=== PATIENT | male | born 1955 | race Caucasian/White ===

== ENCOUNTER 2019-03-24 20:46 | Emergency (ER) | payer OTHER, MEDICAID ==
[~2019-03-24] VITALS: Ht 177.8 cm; Wt 77.1 kg
[2019-03-24 20:53] VITALS: BP_SYST 160
--- NOTE | 2019-03-24 21:00 | NUR ---
Patient to ER bed 5 to gown for evaluation. Side rails up. Report given to ELLA WOODRUFF.
--- NOTE | 2019-03-24 21:10 | NUR ---
Dr. Foster bedside for Pt eval
--- NOTE | 2019-03-24 21:15 | NUR ---
Pt BIBA to ED needing medical clearance with Hx of schizophrenia, who presents to the emergency department secondary to medical clearance prior to transfer to [facility]. Patient is noted to have auditory hallucinations telling him to hurt himself. Upon evaluation, patient states he feels fine and does not have any pain. No chest pain, shortness of breath, headaches, nausea, vomiting, or any other complaints. VSS no s/s of acute distress Resting on gurney rails up
[2019-03-24 22:10] LABS: BILIRUBIN,URINE NEGATIVE (NEGATIVE); BLOOD, URINE NEGATIVE (NEGATIVE); CLARITY/URINE CLEAR (CLEAR); COLOR,URINE YELLOW (YELLOW); GLUCOSE,URINE NEGATIVE (NEGATIVE); KETONES,URINE NEGATIVE (NEGATIVE); LEUKOCYTE ESTERASE ,URINE NEGATIVE (NEGATIVE); NITRITE, URINE NEGATIVE (NEGATIVE); PROTEIN URINE NEGATIVE (NEGATIVE); UROBILINOGEN,URINE 0.2 (0.2-1.0)
[2019-03-24 22:20] LABS: BARBITURATE, URINE NEGATIVE (NEG <=200); BENZODIAZEPINE, URINE NEGATIVE (NEG <=150); CANNABINOID, URINE NEGATIVE (NEG <=50); COCAINE, URINE NEGATIVE (NEG <=150); METHAMPHETAMINES SCREEN,URINE NEGATIVE (NEG <=500); OPIATE, URINE NEGATIVE (NEG <=100); PHENCYCLIDINE SCREEN,URINE NEGATIVE (NEG <=25); UR TRICYCLIC ANTIDEPRESSANTS NEGATIVE (NEG <=300); URINE AMPHETAMINE NEGATIVE (NEG <=500); URINE METHADONE NEGATIVE (NEG <=200); URINE OXYCODONE SCREEN NEGATIVE (NEG <=100); URINE PROPOXYPHENE SCREEN NEGATIVE (NEG <=300)
[2019-03-24 22:21] LABS: BASOPHILS % (AUTO) 0.5 % (0.0-2.0); EOSINOPHILS # (AUTO) 0.1 K/uL (0.0-0.4); EOSINOPHILS % (AUTO) 1.8 % (0.0-4.0); HEMATOCRIT 42.3 % (36-54); HEMOGLOBIN 14.7 g/dL (14.0-18.0); LYMPHOCYTES # (AUTO) 1.5 K/uL (1.0-5.5); MEAN CORPUSCULAR HEMOGLOBIN 33 pg (27-31); MEAN CORPUSCULAR HGB CONC 35 % (32-36); MEAN CORPUSCULAR VOLUME 94 fL (79.0-98.0); MONOCYTES # (AUTO) 0.5 K/uL (0.0-1.0); MONOCYTES % (AUTO) 7.8 % (1.7-9.3); NEUTROPHILS # (AUTO) 4.2 K/uL (1.8-7.7); NEUTROPHILS % (AUTO) 65.9 % (40.0-70.0); PLATELET COUNT (AUTO) 178 K/uL (130-430); WHITE BLOOD COUNT (AUTO) 6.3 K/uL (4.8-10.8)
--- NOTE | 2019-03-24 22:25 | NUR ---
VSS no s/s of acute distress Resting on gurney rails up
[2019-03-24 22:29] LABS: ANION GAP 4 (5-15); CALCIUM 9.2 mg/dL (8.4-11.0); CHLORIDE 100 mmol/L (98-107); CREATININE 0.96 mg/dL (0.55-1.30); GLUCOSE 100 mg/dL (70-99); POTASSIUM 3.7 mmol/L (3.5-5.1); SODIUM SERUM 134 mmol/L (136-145); UREA NITROGEN, BLOOD 10 mg/dL (8-21)
[2019-03-24 22:30] LABS: GFR AFRICAN AMERICAN 101 mL/min (>90)
[2019-03-24 22:38] LABS: ALANINE AMINOTRANSFERASE 29 U/L (12-78); ASPARTATE AMINOTRANSFERASE 23 U/L (10-37); TOTAL BILIRUBIN 1.2 mg/dL (0.0-1.0)
[2019-03-24 22:39] LABS: ACETAMINOPHEN < 1 ug/mL (1-30)
--- NOTE | 2019-03-24 23:05 | NUR ---
Pt stated "not having any pain at all," however, when realizing that the doctor will not be giving any morphine IV med to him; he immediately stated that he is having 10/10 chest pain. 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
[2019-03-25 00:30] VITALS: BP_SYST 160
--- NOTE | 2019-03-25 00:30 | NUR ---
Patient to be transferred to [facility]. Is being transferred due to higher level of care. Receiving facility has accepting physician and available space. ER physician has signed transfer form. Patient or responsible libertarian has agreed to transfer and signed form. Patient belongings inventoried and will be sent with patient. Copy of nursing notes, lab reports, EKG, Physicians Orders and X-rays to be sent with patient. Report called to at receiving facility. Receiving physician is Dr. Jeff. [facility] ambulance service has been called for transfer.
[2019-03-25 20:28] LABS: CHOLESTEROL 142 mg/dL (<200); HDL CHOLESTEROL 61 mg/dL (>45); LDL CHOLESTEROL 79 mg/dL (<100); TRIGLYCERIDES 29 mg/dL (30-150)
== END 2019-03-25 00:30 ==
LOC: SED 20:49
DX: F29 Unspecified psychosis not due to a substance or known physiological condition (principal); F20.9 Schizophrenia, unspecified; J44.9 Chronic obstructive pulmonary disease, unspecified; I10 Essential (primary) hypertension; I20.9 Angina pectoris, unspecified
CPT/HCPCS: 36415; 71045; 80053; 80061; 80307; 81003; 83036; 84484; 85025; 87081; 93005; 99285; G0480; G0481